=== PATIENT | male | born 1955 | race Caucasian/White ===

== ENCOUNTER 2016-11-11 09:36 | Inpatient (IN) ==
--- NOTE | 2016-11-11 09:58 | Emergency Department Note ---
Disposition Clinical Impression: Abdominal pain, Pancreatitis, HTN (hypertension) Disposition: Admitted As Inpatient Condition: Fair Referrals: Sebastián Dean DO [Primary Care Provider] - Forms: Work/School Release, ED Satisfaction Letter Time of Disposition: 12:17 Abdominal Pain HPI - General Chief Complaint: ED Abdominal Pain Stated Complaint: abdominal pain, feels like gas, last bm yesterday Time Seen by Provider: 11/11/16 09:45 Source: patient Mode of arrival: ambulatory Limitations: no limitations Nursing Notes Reviewed: Yes Vital Signs Reviewed: Yes - History of Present Illness HPI Narrative: She is having a 2 day history of suprapubic pain with radiation up into the chest denies any nausea vomiting denies prior history of surgical repair he denies any blurred vision double vision states that he has not had a bowel movement for the patient states pain started getting worse about 11:00 yesterday after he ate Mrs. continue to progress this time patient states is sharp stabbing type pain goes straight into the back he denies any radiation down his legs or any loss of bowel or bladder control. Denies diarrhea vomiting it feels as if he could vomit she might feel better Pt Subjective Complaint: abdominal pain Onset (ago): day(s) (1) Consistency: constant Location: diffuse Pain Severity: severe Pain Scale: 10 Quality: stabbing Radiation: back Migration to: no migration Improves with: nothing Worsens with: eating Associated symptoms: Reports: nausea, constipation. Denies: vomiting, diarrhea , fever, chills, dysuria, hematemesis, hematochezia, melena, hematuria, anorexia , syncope Treatments prior to arrival: none - Related Data Home Medications Medication Instructions Recorded Confirmed Budesonide/Formoterol 80/4.5 2 puff IH BID 12/23/15 11/11/16 [Symbicort 80/4.5] Omeprazole [PriLOSEC] 40 mg PO QAM 12/23/15 11/11/16 Tiotropium [Spiriva] 18 mcg IH BID 12/23/15 11/11/16 Albuterol Sulfate [Proair Hfa] 2 puff IH Q6H 05/29/16 11/11/16 Rosuvastatin Calcium 5 mg PO DAILY 11/11/16 11/11/16 Previous Rx's Medication Instructions Recorded Lisinopril-HCTZ 10-12.5 [Prinzide 1 each PO DAILY #15 tablet 12/23/15 10-12.5] Allergies Allergy/AdvReac Type Severity Reaction Status Date / Time prostate medication Allergy Hives Uncoded 11/11/16 09:38 All systems ED: reviewed and negative except as stated. Constitutional: Denies: fever, weakness Eyes: Denies: vision change ENT ED: Denies: ear pain, throat pain Cardiovascular: Denies: chest pain, palpitations Respiratory: Denies: dyspnea Gastrointestinal: Reports: abdominal pain, nausea, constipation. Denies: vomiting, diarrhea, hematemesis, melena, hematochezia Genitourinary: Denies: urgency, dysuria, frequency, hematuria Musculoskeletal: Denies: back pain, neck pain Integumentary: Denies: rash, abrasion Neurological: Denies: headache, weakness Psychiatric: Denies: anxiety Endocrine: Denies: fatigue Hematological/Lymphatic: Denies: easy bleeding Allergic/Immunologic: Denies: facial swelling Abdominal Pain PMH - Past Medical History Medical history: Reports: COPD, GERD, hypertension Male Surgical History: Reports: orthopedic, other Psychiatric history: Reports: no psych history - Social History Smoking status: Former smoker Alcohol use: Reports: none Drug use: Reports: none Physical Exam - General Limitations: no limitations General appearance: alert, in no apparent distress, anxious, other (easily aggitated and agressive at times) - Head Head exam: normocephalic, normal inspection - Eye Eye exam: Present: normal appearance, PERRL, EOMI - ENT ENT exam: normal exam, normal oropharynx, mucous membranes moist, normal external ear exam - Neck Neck exam: Present: normal inspection, full ROM, trachea midline - Chest Chest inspection: Present: normal inspection, symmetric chest wall rise - Respiratory Respiratory exam: Present: normal lung sounds bilaterally - Cardiovascular Cardiovascular exam: Present: regular rate, normal rhythm, normal heart sounds - Abdominal Exam Abdominal exam: Present: soft, tenderness, distention, guarding, hypoactive bowel sounds. Absent: mass, pulsatile mass Abdominal tenderness: Present: epigastrium, moderate - Expanded Upper Extremity Exam Shoulder exam: Present: normal inspection, full ROM Arm exam: Present: normal inspection, full ROM Elbow exam: Present: normal inspection, full ROM Forearm/Wrist exam: Present: normal inspection, full ROM Hand exam: Present: normal inspection, full ROM Vascular exam: Normal: capillary refill, radial pulse - Expanded Lower Extremity Exam Hip/Pelvis exam: Present: normal inspection, full ROM Upper leg exam: Present: normal inspection, full ROM Knee exam: Present: normal inspection, full ROM Lower leg exam: Present: normal inspection, full ROM Ankle exam: Present: normal inspection, full ROM Foot/toe exam: Present: normal inspection, full ROM Neurovascular/Tendon exam: Present: normal capillary refill, normal fine/light touch. Absent: motor deficit, sensory deficit, tendon deficit Gait: observed and normal - Back Exam Back exam: Present: normal inspection, full ROM - Neurological Exam Neurological exam: Present: alert, oriented X3, CN II-XII intact - Psychiatric Psychiatric exam: Present: normal affect, normal mood - Skin Skin exam: Present: warm, dry, intact, normal color Course Course Narrative: He should seen and examined patient was given initially name this did not seem to help ease his pain he was then given by moderate which did seem to help ease his pain patient still remained a little bit hypertensive during this period time patient was given Normodyne for this which seemed to help improve the patient was then transferred for further management after discussion with Dr. Segal Vital Signs Temperature 97.7 F 11/11/16 09:40 Pulse Rate 106 11/11/16 09:40 Respiratory Rate 18 11/11/16 09:40 Blood Pressure 182/113 11/11/16 09:40 O2 Sat by Pulse Oximetry 95 11/11/16 09:40 Temperature 97.7 F 11/11/16 09:43 Pulse Rate 98 11/11/16 10:59 Respiratory Rate 18 11/11/16 10:59 Blood Pressure 162/106 11/11/16 10:59 O2 Sat by Pulse Oximetry 99 11/11/16 10:59 Oxygen Delivery Oxygen Delivery Room Air Abdominal Pain - Differential Diagnosis Differential Diagnosis: Likely: abdominal pain non-specific, diverticulitis, diverticulosis, pancreatitis - Medical Records Medical records reviewed: Yes I reviewed the patient's medical records. - Lab Data Lab results reviewed: Yes I reviewed the patient's lab results. Result diagrams: 11/11/16 10:11 11/11/16 10:11 Lab Results 11/11/16 11/11/16 11/11/16 Range/Units 10:11 10:11 10:11 WBC 11.3 H (4.3-11.1) K/mcL RBC 5.04 (4.19-5.50) M/mcL Hgb 14.3 (12.9-16.9) g/dL Hct 42.2 (37.5-50.1) % MCV 83.7 (83.0-100.0) fL MCH 28.4 (28.0-33.3) pg MCHC 33.9 (31.6-35.5) g/dL RDW 13.6 (11.5-14.5) % Plt Count 324 (140-400) K/mcL MPV 9.9 (9.4-12.4) fL Immature Gran % 0.4 (0-4) % Seg Neutrophils % 84.7 % Lymphocytes % 7.5 % Monocytes % 6.7 % Eosinophils % 0.4 % Basophils % 0.3 % Neutrophils # 9.6 H (1.6-8.9) K/mcL Lymphocytes # 0.9 (0.6-4.6) K/mcL Monocytes # 0.8 (0.0-1.3) K/mcL Eosinophils # 0.1 (0.0-0.6) K/mcL Basophils # 0.0 (0.0-0.2) K/mcL PT 12.3 H (9.4-12.1) Seconds INR 1.1 APTT 32.5 (26.0-36.0) Seconds Sodium 130 L (136-145) mEq/L Potassium 4.5 (3.5-4.5) mEq/L Chloride 92 L (98-109) mEq/L Carbon Dioxide 27 (19-29) mEq/L BUN 13 (8-26) mg/dL Creatinine 0.75 (0.72-1.25) mg/dL Est GFR ( Amer) > 60 (> 60) Est GFR (Non-Af Amer) > 60 (> 60) BUN/Creatinine Ratio 17 (6-26) Glucose 123 H (70-99) mg/dL Calculated Osmolality 271 L (280-300) Calcium 9.5 (8.6-10.8) mg/dL Total Bilirubin 0.7 (0.2-1.2) mg/dL AST 20 (5-34) Units/L ALT 20 (0-55) Units/L Alkaline Phosphatase 81 (38-126) Units/L Serum Total Protein 7.1 (6.0-8.3) g/dL Albumin 3.6 (3.5-5.0) g/dL Globulin 3.5 (2.4-3.5) g/dL Albumin/Globulin Ratio 1.0 L (1.1-2.2) - Radiology Data Radiology results reviewed: Yes I reviewed the patient's radiology results. Critical Care Time Critical Care Time: No
[2016-11-11] MEDS ORDERED: *HR* Promethazine 25 MG/ML VIAL IVP ONE (10:00)
[2016-11-11] MEDS ORDERED: 0.9 % Sodium Chloride 1,000 ML IVC ONE (10:00)
[2016-11-11] MEDS ORDERED: *HR* Morphine 2 MG/ML SYRINGE IVP ONE (10:01)
[2016-11-11 10:17] LABS: Basophils % 0.3 %; Eosinophils # 0.1 K/mcL (0.0-0.6); Eosinophils % 0.4 %; Hematocrit 42.2 % (37.5-50.1); Hemoglobin 14.3 g/dL (12.9-16.9); Immature Granulocytes % 0.4 % (0-4); Lymphocytes # 0.9 K/mcL (0.6-4.6); Lymphocytes % 7.5 %; Mean Corpuscular HGB Conc 33.9 g/dL (31.6-35.5); Mean Corpuscular Hemoglobin 28.4 pg (28.0-33.3); Mean Corpuscular Volume 83.7 fL (83.0-100.0); Mean Platelet Volume 9.9 fL (9.4-12.4); Monocytes # 0.8 K/mcL (0.0-1.3); Monocytes % 6.7 %; Neutrophils # 9.6 K/mcL (1.6-8.9); Platelet Count 324 K/mcL (140-400); Red Blood Count 5.04 M/mcL (4.19-5.50); Red Cell Distribution Width 13.6 % (11.5-14.5); Segmented Neutrophils % 84.7 %
[2016-11-11 10:23] LABS: INR 1.1; Prothrombin Time 12.3 Seconds (9.4-12.1)
[2016-11-11 10:26] LABS: Activated Partial Thrombo Time 32.5 Seconds (26.0-36.0)
[2016-11-11 10:35] LABS: Alanine Aminotransferase 20 Units/L (0-55); Albumin 3.6 g/dL (3.5-5.0); Alkaline Phosphatase 81 Units/L (38-126); Aspartate Amino Transferase 20 Units/L (5-34); BUN/Creatinine Ratio 17 (6-26); Bilirubin,Total 0.7 mg/dL (0.2-1.2); Blood Urea Nitrogen 13 mg/dL (8-26); Calcium 9.5 mg/dL (8.6-10.8); Carbon Dioxide 27 mEq/L (19-29); Chloride 92 mEq/L (98-109); Globulin 3.5 g/dL (2.4-3.5); Glucose 123 mg/dL (70-99); Osmolality,Calculated 271 (280-300); Potassium 4.5 mEq/L (3.5-4.5); Sodium 130 mEq/L (136-145); Total Protein 7.1 g/dL (6.0-8.3); eGFR For African Americans > 60 (> 60); eGFR For Non-African Americans > 60 (> 60)
[2016-11-11] MEDS ORDERED: Famotidine 20 MG/2 ML VIAL IVP ONE (11:34)
[2016-11-11] MEDS ORDERED: *HR* HYDROmorphone (PF) 1 MG/ML SYRINGE IVP ONE (11:34)
[2016-11-11 11:47] LABS: Bilirubin,Urine Negative (Negative); Blood,Urine Trace-intact (Negative); Clarity,Urine Clear (Clear); Color,Urine Yellow (Yellow); Glucose,Urine (UA) Normal (Normal); Ketones,Urine 40 mg/dL (Negative); Leukocyte Esterase,Urine Negative (Negative); Nitrite,Urine Negative (Negative); PH,Urine 8.5 pH Units (5.0-8.0); Protein,Urine Trace mg/dL (Neg-Trace); Urobilinogen,Urine Normal (Normal)
[2016-11-11 11:53] LABS: RBC,Urine 0-3 per hpf (0-3); Squamous Epithelial Cell,Urine Few per lpf (None-Few)
[2016-11-11 11:54] LABS: Bacteria,Urine Few per hpf (None-Few); Mucus,Urine Few (Few)
[2016-11-11] MEDS ORDERED: *HR* Labetalol 20 MG/4 ML SYRINGE IVP STA (12:17)
[2016-11-11] MEDS ORDERED: 0.9 % Sodium Chloride 1,000 ML ONE (12:23)
[2016-11-11] MEDS ORDERED: Ondansetron 4 MG/2 ML VIAL IVP PRN ×2 (12:43→16:37)
[2016-11-11] MEDS ORDERED: *HR* HYDROmorphone (PF) 1 MG/ML SYRINGE IVP PRN ×2 (12:43→16:37)
[2016-11-11] MEDS ORDERED: *HR* Promethazine 25 MG/ML VIAL IVP PRN ×2 (12:43→16:37)
[2016-11-11] MEDS ORDERED: Naloxone 0.4 MG/ML INJ IVP PRN ×2 (12:43)
[2016-11-11] MEDS: 0.9 % Sodium Chloride 1,000 ML IVC SCH ×2 (13:03→21:52)
--- NOTE | 2016-11-11 16:24 | Internal Med History&Physical ---
Date of Encounter: 11/11/16 Time of Encounter: 15:55 Assessment and Plan (1) Abdominal pain Current visit: Yes Status: Acute He will be treated for pancreatitis although lipase was normal. He will be given IV fluids with prn analgesics. Diet will be introduced gradually. Follow -up labs will be done in a.m. Qualifiers: Abdominal location: epigastric Qualified Code(s): R10.13 - Epigastric pain (2) HTN (hypertension) Current visit: Yes Status: Chronic Lisinopril/HCTZ will be held and he will be given metoprolol. Further workup will be done as needed. Qualifiers: Hypertension type: essential hypertension Qualified Code(s): I10 - Essential (primary) hypertension (3) COPD (chronic obstructive pulmonary disease) Current visit: Yes Status: Chronic He will be given home regimen with prn albuterol nebs Qualifiers: COPD type: emphysema Emphysema type: unspecified Qualified Code(s): J43.9 - Emphysema, unspecified Internal Medicine - H&P: HPI Chief complaint: Abdominal pain Admitted From: Home Plans for Post Hospital Care: Home History of present illness: Mr. Holley is a 61 year old male who came to emergency stating he had worsening abdominal pain over the past 2 days. He had nausea but no vomiting. He states the pain was in his suprapubic area and radiated up to his upper abdomen and back area. He states the level was 10 /10. He came to emergency room and evaluation included CT scan that showed possible mild pancreatitis. His lipase was normal however. He was admitted to [facility] floor for ongoing care needs. He denies previous episodes of pancreatitis. He denies alcohol use for many years and has had no gallstones. He has been on lisinopril/HCTZ for several months. He has not had abdominal trauma. He does have hyperlipidemia but most recent triglyceride level was 48 on 05/24/2016. Denies other disorders of his liver gallbladder or exocrine pancreas. He had diverticulitis in the past. He has not had melena or hematochezia. Past Med Surg Social Fam HX - Past Medical History Medical history: COPD, GERD, hypertension Psychiatric history: no psych history - Social History Smoking Status: Former smoker Smokeless Tobacco Status: No Alcohol use: none Drug use: none Internal Medicine - H&P: Meds Budesonide/Formoterol 80/4.5 [Symbicort 80/4.5] 2 puff IH BID 12/23/15 [History ] Lisinopril-HCTZ 10-12.5 [Prinzide 10-12.5] 1 each PO DAILY #15 tablet 12/23/15 [ Rx] Omeprazole [PriLOSEC] 40 mg PO QAM 12/23/15 [History] Tiotropium [Spiriva] 18 mcg IH BID 12/23/15 [History] Albuterol Sulfate [Proair Hfa] 2 puff IH Q6H 05/29/16 [History] Rosuvastatin Calcium 5 mg PO DAILY 11/11/16 [History] Allergies prostate medication Allergy (Uncoded 11/11/16 09:38) Hives All Systems PM: A 10-system review of systems was performed and is negative for pertinent findings except as documented above in the HPI. Review of systems: Gen.: He states his weight has been stable the past few months Cardiovascular: He has a history of hypertension but denies NH heart failure angina DVT or pulmonary embolus Respiratory: He is smoked since age 14 up to 2 packs per day. He has oxygen at home for when necessary use but states it belongs to a friend. He claims he had PFTs approximately 2013 which showed COPD/emphysema. GI: As per history of present illness : He has BPH. 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 He has had surgery on his back and wrist in the past. - Constitutional Vitals: Temp Pulse Resp BP Pulse Ox 98.5 F 93 14 160/94 97 11/11/16 13:00 11/11/16 13:00 11/11/16 13:00 11/11/16 13:00 11/11/16 13:00 Exam: Gen.: He is a well-developed and nourished male who appears in mild pain at the present time HEENT: Head is atraumatic and normocephalic. Eyes: EOMI. There is no scleral icterus. Mouth: Mucosa is moist. Neck: Supple and nontender. There is no thyromegaly or adenopathy noted. Heart: Regular without murmurs gallops or ectopics. Lungs: No wheezes or crackles are heard. Back: He has well-healed surgical scar in his midline back area. There is no flank tenderness Abdomen: Soft and nontender. Bowel sounds are markedly diminished and almost absent. There is mild tenderness to moderate palpation in epigastric area. Extremities: There is no cyanosis edema or clubbing noted. Dorsalis pedis and posttibial pulses are 1-2 over 2 bilaterally. Neurologic: Mental status: He is talkative and a good historian. Cranial nerves : Smile is symmetric. Forehead wrinkles bilaterally. Tongue protrudes midline. EOMI. Motor: There is no pronator drift. Cerebellar: Finger to nose is intact bilaterally. Skin: Warm and dry Internal Med - H&P Results - Labs CBC & Chem 7: 11/11/16 10:11 11/11/16 10:11
[2016-11-11] MEDS: Budesonide/Formoterol 80/4.5 MDI IH SCH (21:32)
[2016-11-12 05:28] LABS: Basophils # 0.1 K/mcL (0.0-0.2); Basophils % 0.6 %; Eosinophils # 0.2 K/mcL (0.0-0.6); Eosinophils % 1.8 %; Hematocrit 37.2 % (37.5-50.1); Hemoglobin 12.2 g/dL (12.9-16.9); Immature Granulocytes % 0.4 % (0-4); Lymphocytes # 1.4 K/mcL (0.6-4.6); Lymphocytes % 13.9 %; Mean Corpuscular HGB Conc 32.8 g/dL (31.6-35.5); Mean Corpuscular Volume 85.5 fL (83.0-100.0); Mean Platelet Volume 9.9 fL (9.4-12.4); Monocytes % 9.8 %; Neutrophils # 7.5 K/mcL (1.6-8.9); Platelet Count 279 K/mcL (140-400); Red Blood Count 4.35 M/mcL (4.19-5.50); Red Cell Distribution Width 13.7 % (11.5-14.5); Segmented Neutrophils % 73.5 %
[2016-11-12] MEDS: 0.9 % Sodium Chloride 1,000 ML IVC SCH ×3 (05:49→17:07)
[2016-11-12] MEDS: *HR* Enoxaparin 40 MG/0.4 ML SYRINGE SQ SCH (05:50)
[2016-11-12 05:54] LABS: Alanine Aminotransferase 15 Units/L (0-55); Albumin 2.8 g/dL (3.5-5.0); Alkaline Phosphatase 65 Units/L (38-126); Aspartate Amino Transferase 15 Units/L (5-34); BUN/Creatinine Ratio 10 (6-26); Bilirubin,Total 0.7 mg/dL (0.2-1.2); Blood Urea Nitrogen 7 mg/dL (8-26); Calcium 8.5 mg/dL (8.6-10.8); Carbon Dioxide 26 mEq/L (19-29); Chloride 99 mEq/L (98-109); Globulin 2.9 g/dL (2.4-3.5); Glucose 90 mg/dL (70-99); Lipase 24 Units/L (8-78); Osmolality,Calculated 276 (280-300); Potassium 4.2 mEq/L (3.5-4.5); Sodium 134 mEq/L (136-145); Total Protein 5.7 g/dL (6.0-8.3); eGFR For African Americans > 60 (> 60); eGFR For Non-African Americans > 60 (> 60)
[2016-11-12 05:55] LABS: Chol/HDL Ratio 2.9 (0-4.9)
[2016-11-12] MEDS: Budesonide/Formoterol 80/4.5 MDI IH SCH ×2 (08:10→22:45)
[2016-11-12] MEDS: Tiotropium 18 MCG inhalation IH SCH (08:16)
[2016-11-12] MEDS ORDERED: Pantoprazole 40 MG VIAL IVP SCH (09:00)
--- NOTE | 2016-11-12 09:08 | Internal Med Progress Note ---
Date of Encounter: 11/12/16 Time of Encounter: 09:00 - Assessment and plan (1) Abdominal pain Current Visit: Yes Status: Acute Assessment and plan: November 12. Will advance diet to full liquid. Leukocytosis and left shift have resolved. Qualifiers: Abdominal location: epigastric Qualified Code(s): R10.13 - Epigastric pain (2) HTN (hypertension) Current Visit: Yes Status: Chronic Assessment and plan: November 12. Remain off lisinopril/HCTZ and continue metoprolol. Qualifiers: Hypertension type: essential hypertension Qualified Code(s): I10 - Essential (primary) hypertension (3) COPD (chronic obstructive pulmonary disease) Current Visit: Yes Status: Chronic Assessment and plan: November 12. Continue present regimen Qualifiers: COPD type: emphysema Emphysema type: unspecified Qualified Code(s): J43.9 - Emphysema, unspecified (4) Urinary retention Current Visit: Yes Status: Acute Assessment and plan: November 12. We will give Flomax. Discontinue Younger in a.m. - Subjective Interval history: November 12. He has no new complaints and feels better. He is passing gas. He has no nausea and has had no vomiting. He had over 500 mL urine on bladder scan yesterday. Younger catheter was inserted. He denies urinary hesitancy at home. - Constitutional Vitals: Temp Pulse Resp BP Pulse Ox 99.1 F 92 18 159/93 98 11/12/16 07:03 11/12/16 07:03 11/12/16 08:21 11/12/16 07:03 11/12/16 08:21 Exam: He is resting comfortably in bed. Bowel sounds are present. The abdomen is nontender to palpation. I reviewed his medications and lab results. Internal Medicine: Result - Labs CBC & Chem 7: 11/12/16 05:06 11/12/16 05:06 Labs: Short CBC 11/12/16 Range/Units 05:06 WBC 10.2 (4.3-11.1) K/mcL Hgb 12.2 L D (12.9-16.9) g/dL Hct 37.2 L (37.5-50.1) % Plt Count 279 (140-400) K/mcL Neutrophils # 7.5 (1.6-8.9) K/mcL BMP 11/12/16 05:06 Sodium 134 L Potassium 4.2 Chloride 99 Carbon Dioxide 26 BUN 7 L Creatinine 0.72 Glucose 90 Calcium 8.5 L Liver Function 11/12/16 Range/Units 05:06 Total Bilirubin 0.7 (0.2-1.2) mg/dL AST 15 (5-34) Units/L ALT 15 (0-55) Units/L Alkaline Phosphatase 65 (38-126) Units/L Albumin 2.8 L D (3.5-5.0) g/dL - ABG Interpretation ABG results: PT/INR, D-dimer PT 12.3 Seconds (9.4-12.1) H 11/11/16 10:11 Consult Discharge Plan - Plan Referrals: Sebastián Dean DO [Primary Care Provider] - 1 week
[2016-11-13] MEDS: *HR* Enoxaparin 40 MG/0.4 ML SYRINGE SQ SCH (06:31)
[2016-11-13 06:53] VITALS: BP 144/91
[2016-11-13] MEDS: Budesonide/Formoterol 80/4.5 MDI IH SCH (08:24)
[2016-11-13] MEDS: Tiotropium 18 MCG inhalation IH SCH (08:27)
[2016-11-13] MEDS ORDERED: Metoprolol XL (24 HR) Succ 50 MG TAB.ER.24H PO SCH (10:15)
--- NOTE | 2016-11-13 10:17 | Discharge Summary ---
Date of Encounter: 11/13/16 Time of Encounter: 10:00 - Discharge Diagnosis (1) Abdominal pain Priority: Primary Status: Resolved Qualifiers: Abdominal location: epigastric Qualified Code(s): R10.13 - Epigastric pain (2) HTN (hypertension) Priority: Secondary Status: Chronic Qualifiers: Hypertension type: essential hypertension Qualified Code(s): I10 - Essential (primary) hypertension (3) COPD (chronic obstructive pulmonary disease) Priority: Secondary Status: Chronic Qualifiers: COPD type: emphysema Emphysema type: unspecified Qualified Code(s): J43.9 - Emphysema, unspecified (4) Urinary retention Priority: Secondary Status: Acute - Discharge Medications Prescriptions: Metoprolol XL (24 HR) Succ [Toprol XL] 50 mg PO DAILY #30 tab.er.24h Home Medications: Budesonide/Formoterol 80/4.5 [Symbicort 80/4.5] 2 puff IH BID 12/23/15 [History ] Omeprazole [PriLOSEC] 40 mg PO QAM 12/23/15 [History] Tiotropium [Spiriva] 18 mcg IH BID 12/23/15 [History] Albuterol Sulfate [Proair Hfa] 2 puff IH Q6H 05/29/16 [History] Rosuvastatin Calcium 5 mg PO DAILY 11/11/16 [History] Metoprolol XL (24 HR) Succ [Toprol XL] 50 mg PO DAILY #30 tab.er.24h 11/13/16 [ Rx] Allergies/Adverse Reactions: Allergies tamsulosin [From Flomax] Adverse Reaction (Verified 11/12/16 15:33) Difficulty Breathing prostate medication Allergy (Uncoded 11/11/16 09:38) Hives Date of admission: 11/11/16 16:37 Primary care physician: Sebastián Dean DO - Patient Status Disposition: Home, Self-Care Condition: Fair Overall status at discharge: patient is progressing back to baseline - Discharge Instructions Follow Up With: Sebastián Dean DO [Primary Care Provider] - 11/14/16 - Diet and Activity Activity: resume usual activities as tolerated Diet: advance to your usual diet Hospital course: Mr. Holley is a 61 year old male who came to emergency stating he had worsening abdominal pain over the past 2 days. He had nausea but no vomiting. He states the pain was in his suprapubic area and radiated up to his upper abdomen and back area. He states the level was 10 /10. He came to emergency room and evaluation included CT scan that showed possible mild pancreatitis. His lipase was normal however. He was admitted to [facility] for ongoing care needs. Initial orders were written by the emergency room physician. I saw him on November 11 and performed history and physical. He was given IV fluids and analgesics. Diet was reintroduced and tolerated well. His abdominal pain lessened and almost resolved by the day of discharge. The exact cause of his abdominal pain was not determined with certainty. Follow-up lipase done November 12 was also normal at 24. Lisinopril/HCTZ was held because of possible pancreatitis and hyponatremia and hypochloremia. The fluids were given and chemistries improved. He was given metoprolol and his heart rate and blood pressure remained stable. He will be discharged home on Toprol-XL 50 mg daily. Roomer oximetry will be checked prior to discharge. He will follow with Dr. Dean as scheduled tomorrow. - Time Spent with Patient Total time spent providing and/or coordinating discharge services: - Constitutional Vitals: Temp Pulse Resp BP Pulse Ox 98.1 F 83 18 144/91 97 11/13/16 06:52 11/13/16 06:52 11/13/16 08:27 11/13/16 06:52 11/13/16 08:27
== END 2016-11-13 12:43 | disposition home or self-care (01) | DRG 251 ==
LOC: INPPIK 09:36 → EMEROOPIK 09:36 → INPPIK 12:51
PROVIDERS: ADMIT Internal Medicine; ATTEND Internal Medicine

== ENCOUNTER 2017-02-06 23:55 | Observation (INO) ==
[2017-02-07] MEDS ORDERED: Ipratropium/Albuterol Neb 3 ML IH ONE (00:05)
[2017-02-07] MEDS ORDERED: 0.9 % Sodium Chloride 1,000 ML IVC ONE (00:08)
[2017-02-07] MEDS ORDERED: methylPREDNISolone 125 MG/2 ML VIAL IVP ONE (00:08)
--- NOTE | 2017-02-07 00:10 | Emergency Department Note ---
Disposition Clinical Impression: Acute exacerbation of chronic obstructive airways disease, HTN (hypertension) Disposition: Admitted As Inpatient Condition: Fair Referrals: Sebastián Dean DO [Primary Care Provider] - Forms: ED Satisfaction Letter Time of Disposition: 01:19 (OBSV Philipp) SOB HPI - General Chief Complaint: ED Shortness of Breath/Dyspnea Stated Complaint: difficulty breathing Time Seen by Provider: 02/06/17 23:59 Source: EMS Mode of arrival: ambulatory Limitations: no limitations Nursing Notes Reviewed: Yes Vital Signs Reviewed: Yes - History of Present Illness Pt Subjective Complaint: shortness of breath Onset (ago): day(s) (3-4 worse this pm) Severity: severe Consistency/Duration: constant Improves with: nothing Worsens with: exertion, movement, coughing Known history of: COPD Associated symptoms: Reports: wheezing. Denies: chest pain, pain with inspiration, fever, cough, sputum production, orthopnea, lower extremity pain, polyuria, polydipsia, parasthesias, palpitations, hemoptysis, diaphoresis, nausea/vomiting, syncope, abdominal pain, sense of impending doom Treatment prior to arrival: oxygen, bronchodilator Cough present: No Sputum production: No - Related Data Home Medications Medication Instructions Recorded Confirmed Budesonide/Formoterol 80/4.5 2 puff IH BID 12/23/15 11/11/16 [Symbicort 80/4.5] Omeprazole [PriLOSEC] 40 mg PO QAM 12/23/15 11/11/16 Tiotropium [Spiriva] 18 mcg IH BID 12/23/15 11/11/16 Albuterol Sulfate [Proair Hfa] 2 puff IH Q6H 05/29/16 11/11/16 Rosuvastatin Calcium 5 mg PO DAILY 11/11/16 11/11/16 Previous Rx's Medication Instructions Recorded Metoprolol XL (24 HR) Succ [Toprol 50 mg PO DAILY #30 tab.er.24h 11/13/16 XL] Allergies Allergy/AdvReac Type Severity Reaction Status Date / Time tamsulosin [From Flomax] AdvReac Difficulty Verified 02/07/17 00:11 Breathing prostate medication Allergy Hives Uncoded 02/07/17 00:11 All systems ED: reviewed and negative except as stated. Constitutional: Denies: fever, chills, weakness Eyes: Denies: eye pain, eye discharge ENT ED: Denies: ear pain, throat pain Cardiovascular: Denies: chest pain, palpitations Respiratory: Reports: cough, dyspnea, wheezes Gastrointestinal: Denies: abdominal pain, nausea, vomiting Genitourinary: Denies: urgency, dysuria Musculoskeletal: Denies: back pain Integumentary: Denies: rash, abrasion Neurological: Denies: headache Psychiatric: Denies: anxiety Endocrine: Denies: fatigue Hematological/Lymphatic: Denies: easy bleeding Allergic/Immunologic: Denies: facial swelling Past Medical History - Past Medical History Attestation: Yes The following information was validated with the patient. Source: patient, old records reviewed, nursing notes reviewed Medical history: Reports: COPD, GERD, hypertension Psychiatric history: Reports: no psych history - Social History Smoking Status: Former smoker Smokeless Tobacco Status: No Alcohol use: Reports: none Drug use: Reports: none Physical Exam - General Limitations: no limitations General appearance: alert, anxious, in distress - Head Head exam: atraumatic, normocephalic, normal inspection - Eye Eye exam: Present: normal appearance, PERRL, EOMI - ENT ENT exam: normal exam, normal oropharynx, mucous membranes moist, normal external ear exam - Neck Neck exam: Present: normal inspection, full ROM, trachea midline - Chest Chest inspection: Present: normal inspection, symmetric chest wall rise - Respiratory Respiratory exam: Present: wheezes, accessory muscle use, prolonged expiratory phase - Cardiovascular Cardiovascular exam: Present: regular rate, normal rhythm, normal heart sounds - Abdominal Exam Abdominal exam: Present: soft, Non-Tender, normal bowel sounds. Absent: mass, pulsatile mass - Extremities Exam Extremities exam: Present: normal inspection, full ROM, normal capillary refill , pedal edema. Absent: tenderness, joint swelling, calf tenderness - Expanded Lower Extremity Exam Neurovascular/Tendon exam: Present: normal capillary refill, normal fine/light touch Gait: observed and normal - Back Exam Back exam: Present: normal inspection, full ROM. Absent: muscle spasm - Neurological Exam Neurological exam: Present: alert, oriented X3, CN II-XII intact, normal gait - Psychiatric Psychiatric exam: Present: normal affect, normal mood - Skin Skin exam: Present: warm, dry, intact, normal color Course Course Narrative: Patient immediately seen and examined given a DuoNeb treatment 2 chest x-ray and blood work done EKG was done which showed sinus tach but no ST changes noted patient was hypertensive we discussed the possibilities of this being related to his tight pulmonary presentation we did give him an aerosol will repeat blood pressure upon completion if still elevated we will treat with clonidine - Reevaluation(s) Reevaluation #1: Patient's blood pressure did improve significantly with use of Ativan, and then he still seemed to have some agitation with family but now he is agreeable staying overnight getting his respiratory status improved Vital Signs Temperature 97.5 F L 02/06/17 23:57 Pulse Rate 109 02/06/17 23:57 Respiratory Rate 21 02/06/17 23:57 Blood Pressure 200/126 02/06/17 23:57 O2 Sat by Pulse Oximetry 98 02/06/17 23:57 Temperature 97.5 F L 02/06/17 23:57 Pulse Rate 107 02/07/17 01:05 Respiratory Rate 22 02/07/17 01:05 Blood Pressure 205/115 02/07/17 01:05 O2 Sat by Pulse Oximetry 98 02/07/17 01:05 Oxygen Delivery Oxygen Delivery Nasal Cannula Shortness of Breath/Dyspnea - Differential Diagnosis Likely: acute exacerbation of chronic obstructive airways disease, pneumonia, asthma with exacerbation - Medical Records Medical records reviewed: Yes I reviewed the patient's medical records. - Lab Data Lab results reviewed: Yes I reviewed the patient's lab results. Result diagrams: 02/07/17 00:15 02/07/17 00:15 Lab Results 02/07/17 02/07/17 02/07/17 Range/Units 00:15 00:15 00:15 WBC 9.8 (4.3-11.1) K/mcL RBC 5.07 (4.19-5.50) M/mcL Hgb 14.6 (12.9-16.9) g/dL Hct 44.0 (37.5-50.1) % MCV 86.8 (83.0-100.0) fL MCH 28.8 (28.0-33.3) pg MCHC 33.2 (31.6-35.5) g/dL RDW 14.0 (11.5-14.5) % Plt Count 337 (140-400) K/mcL MPV 9.9 (9.4-12.4) fL Immature Gran % 0.4 (0-4) % Seg Neutrophils % 75.8 % Lymphocytes % 13.3 % Monocytes % 8.3 % Eosinophils % 1.6 % Basophils % 0.6 % Neutrophils # 7.4 (1.6-8.9) K/mcL Lymphocytes # 1.3 (0.6-4.6) K/mcL Monocytes # 0.8 (0.0-1.3) K/mcL Eosinophils # 0.2 (0.0-0.6) K/mcL Basophils # 0.1 (0.0-0.2) K/mcL PT 11.0 (9.4-12.1) Seconds INR 1.0 APTT 32.6 (26.0-36.0) Seconds Sodium 133 L (136-145) mEq/L Potassium 4.7 H (3.5-4.5) mEq/L Chloride 94 L (98-109) mEq/L Carbon Dioxide 28 (19-29) mEq/L BUN 13 (8-26) mg/dL Creatinine 0.73 (0.72-1.25) mg/dL Est GFR ( Amer) > 60 (> 60) Est GFR (Non-Af Amer) > 60 (> 60) BUN/Creatinine Ratio 18 (6-26) Glucose 105 H (70-99) mg/dL Calculated Osmolality 276 L (280-300) Calcium 9.3 (8.6-10.8) mg/dL Troponin I (0-0.03) ng/mL 02/07/17 Range/Units 00:15 WBC (4.3-11.1) K/mcL RBC (4.19-5.50) M/mcL Hgb (12.9-16.9) g/dL Hct (37.5-50.1) % MCV (83.0-100.0) fL MCH (28.0-33.3) pg MCHC (31.6-35.5) g/dL RDW (11.5-14.5) % Plt Count (140-400) K/mcL MPV (9.4-12.4) fL Immature Gran % (0-4) % Seg Neutrophils % % Lymphocytes % % Monocytes % % Eosinophils % % Basophils % % Neutrophils # (1.6-8.9) K/mcL Lymphocytes # (0.6-4.6) K/mcL Monocytes # (0.0-1.3) K/mcL Eosinophils # (0.0-0.6) K/mcL Basophils # (0.0-0.2) K/mcL PT (9.4-12.1) Seconds INR APTT (26.0-36.0) Seconds Sodium (136-145) mEq/L Potassium (3.5-4.5) mEq/L Chloride (98-109) mEq/L Carbon Dioxide (19-29) mEq/L BUN (8-26) mg/dL Creatinine (0.72-1.25) mg/dL Est GFR ( Amer) (> 60) Est GFR (Non-Af Amer) (> 60) BUN/Creatinine Ratio (6-26) Glucose (70-99) mg/dL Calculated Osmolality (280-300) Calcium (8.6-10.8) mg/dL Troponin I 0.01 (0-0.03) ng/mL - Radiology Data Radiology results reviewed: Yes I reviewed the patient's radiology results. - EKG Data EKG attestation: Yes I reviewed and interpreted this EKG. EKG results narrative: Sinus rhythm 95 ID 159 QRS 82 QT 336 excess -28 Critical Care Time Critical Care Time: Yes Total Critical Care Time: 45 Attestation: Critical care performed:45 min due to the hypertension associated with the patient at this time but also his respiratory distress upon presentation to the emergency room patient was tachycardic but this is mostly secondary to hypertension discussed with patient observation admission discharge at this time considering strongly of being discharged she does not we will stay in the hospital Time is exclusive of separately billable procedures. Time includes: direct patient care, patient reassessment, coordination of patient care, interpretation of data (laboratory data, radiology data, and respiratory data), review of patient's medical records, medical consultation and documentation of patient care. Procedures included in critical care time: Procedures excluded from critical care time:
[2017-02-07 00:26] LABS: Basophils # 0.1 K/mcL (0.0-0.2); Basophils % 0.6 %; Eosinophils # 0.2 K/mcL (0.0-0.6); Eosinophils % 1.6 %; Hemoglobin 14.6 g/dL (12.9-16.9); Immature Granulocytes % 0.4 % (0-4); Lymphocytes # 1.3 K/mcL (0.6-4.6); Lymphocytes % 13.3 %; Mean Corpuscular HGB Conc 33.2 g/dL (31.6-35.5); Mean Corpuscular Hemoglobin 28.8 pg (28.0-33.3); Mean Corpuscular Volume 86.8 fL (83.0-100.0); Mean Platelet Volume 9.9 fL (9.4-12.4); Monocytes # 0.8 K/mcL (0.0-1.3); Monocytes % 8.3 %; Neutrophils # 7.4 K/mcL (1.6-8.9); Platelet Count 337 K/mcL (140-400); Red Blood Count 5.07 M/mcL (4.19-5.50); Segmented Neutrophils % 75.8 %
[2017-02-07 00:33] LABS: Activated Partial Thrombo Time 32.6 Seconds (26.0-36.0)
[2017-02-07] MEDS ORDERED: cloNIDine HCl 0.1 MG TABLET PO STA (00:36)
[2017-02-07 00:40] LABS: BUN/Creatinine Ratio 18 (6-26); Blood Urea Nitrogen 13 mg/dL (8-26); Calcium 9.3 mg/dL (8.6-10.8); Carbon Dioxide 28 mEq/L (19-29); Chloride 94 mEq/L (98-109); Glucose 105 mg/dL (70-99); Osmolality,Calculated 276 (280-300); Potassium 4.7 mEq/L (3.5-4.5); Sodium 133 mEq/L (136-145); eGFR For African Americans > 60 (> 60); eGFR For Non-African Americans > 60 (> 60)
[2017-02-07] MEDS ORDERED: *HR* LORazepam 2 MG/ML VIAL IVP ONE (00:54)
[2017-02-07] MEDS ORDERED: 0.9 % Sodium Chloride 1,000 ML IVC SCH (02:59)
[2017-02-07] MEDS ORDERED: Naloxone 0.4 MG/ML INJ IVP PRN (02:59)
[2017-02-07] MEDS ORDERED: Ondansetron ODT 4 MG TAB.RAPDIS SL PRN (02:59)
[2017-02-07] MEDS ORDERED: Ipratropium/Albuterol Neb 3 ML IH SCH (05:00)
[2017-02-07] MEDS ORDERED: methylPREDNISolone 125 MG/2 ML VIAL IVP SCH (06:00)
[2017-02-07 06:41] LABS: INR 1.1; Prothrombin Time 11.6 Seconds (9.4-12.1)
[2017-02-07 06:43] LABS: Activated Partial Thrombo Time 31.8 Seconds (26.0-36.0)
[2017-02-07] MEDS ORDERED: Levofloxacin 500 MG/100 ML 500 MG/100 ML BAG IVPB SCH (09:00)
[2017-02-07] MEDS ORDERED: Metoprolol XL (24 HR) Succ 50 MG TAB.ER.24H PO SCH (09:00)
[2017-02-07] MEDS ORDERED: Tiotropium 18 MCG inhalation IH SCH ×2 (10:15→10:18)
[2017-02-07] MEDS ORDERED: Budesonide/Formoterol 80/4.5 MDI IH SCH (10:15)
[2017-02-07] MEDS: Budesonide/Formoterol 160/4.5 MDI IH SCH ×2 (10:32→22:19)
[2017-02-07] MEDS: Albuterol 2.5 MG/3 ML NEBULIZER IH PRN ×2 (10:33→17:58)
--- NOTE | 2017-02-07 11:50 | Internal Med History&Physical ---
Date of Encounter: 02/07/17 Time of Encounter: 11:25 Assessment and Plan (1) Dyspnea Current visit: Yes Status: Acute Suspect primarily due to exacerbation of COPD. Will check bn peptide to evaluate for heart failure component. Qualifiers: Dyspnea type: shortness of breath Qualified Code(s): R06.02 - Shortness of breath (2) HTN (hypertension) Current visit: No Status: Chronic Blood pressures have been suboptimally controlled since admission. Will increase Toprol-XL dose and add Bumex Qualifiers: Hypertension type: essential hypertension Qualified Code(s): I10 - Essential (primary) hypertension Internal Medicine - H&P: HPI Chief complaint: Dyspnea Admitted From: Home Plans for Post Hospital Care: Home History of present illness: Mr. Holley is a 61 year old male who came to the emergency room after he had worsening dyspnea over the preceding few days. He reported he had sensation of hot flashes. He reports no significant cough or chest pain. He was evaluated in emergency room and felt to have exacerbation of COPD and was admitted to [facility] floor for ongoing care needs. He states his breathing has improved and he feels back to his baseline. His respiratory history is significant for having smoked since age 14 up to 2 packs per day. He uses oxygen home but states it belongs to a friend. He claims he had PFTs approximately 2013 which showed COPD/emphysema. He has not missed doses of his pulmonary medications. He has known pulmonary nodules which have been stable on follow-up CT scans. Past Med Surg Social Fam HX - Past Medical History Medical history: COPD, GERD, hypertension Psychiatric history: no psych history, anxiety - Social History Smoking Status: Former smoker Smokeless Tobacco Status: No Alcohol use: none Drug use: none Internal Medicine - H&P: Meds Budesonide/Formoterol 80/4.5 [Symbicort 80/4.5] 2 puff IH BID 12/23/15 [History ] Omeprazole [PriLOSEC] 40 mg PO QAM 12/23/15 [History] Tiotropium [Spiriva] 18 mcg IH BID 12/23/15 [History] Albuterol Sulfate [Proair Hfa] 2 puff IH Q6H 05/29/16 [History] Rosuvastatin Calcium 5 mg PO DAILY 11/11/16 [History] Metoprolol XL (24 HR) Succ [Toprol XL] 50 mg PO DAILY #30 tab.er.24h 11/13/16 [ Rx] Allergies tamsulosin [From Flomax] Adverse Reaction (Verified 02/07/17 03:15) Difficulty Breathing prostate medication Allergy (Uncoded 02/07/17 00:11) Hives All Systems PM: A 10-system review of systems was performed and is negative for pertinent findings except as documented above in the HPI. Review of systems: Review of systems from his November 2016 hospitalization were reviewed and revised as below. Gen.: His weight has been stable since November 2016 hospitalization at approximately 65 kg. Cardiovascular: He has a history of hypertension but denies AL heart failure angina DVT or pulmonary embolus Respiratory: Per history of present illness GI: He was hospitalized with pancreatitis November 2016. Etiology was not certain but lisinopril/HCTZ was discontinued and he has had no recurrence. He denies other disorders of his liver gallbladder or exocrine pancreas. He is had diverticulitis in the past. : He has BPH. 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 He has had surgery on his back and wrist in the past. - Constitutional Vitals: Temp Pulse Resp BP Pulse Ox 98.4 F 101 18 156/91 98 02/07/17 10:25 02/07/17 10:25 02/07/17 10:32 02/07/17 10:25 02/07/17 10:32 Exam: Gen.: He is a well-developed well-nourished male who appears in minimal distress at present time HEENT: Head is atraumatic and normocephalic. Eyes: EOMI. There is no scleral icterus. Mouth: Mucosa is moist. Neck: Supple and nontender. There is no thyromegaly or adenopathy noted. Heart: Regular without murmurs gallops or ectopics Lungs: He has diminished breath sounds diffusely. No wheezes or crackles are heard. Abdomen: Soft and nontender. No masses or guarding are noted. Extremities: There is no cyanosis or clubbing noted. He has trace edema the dorsum of the feet and lower legs bilaterally. Neurologic: Mental status: He is talkative and a good historian. Cranial nerves : Smile is symmetric. Forehead wrinkles bilaterally. Tongue protrudes midline. EOMI. Motor: There is no pronator drift. Cerebellar: Finger to nose is intact bilaterally. Skin: Warm and dry Internal Med - H&P Results - Labs CBC & Chem 7: 02/07/17 00:15 02/07/17 00:15
[2017-02-07] MEDS ORDERED: Bumetanide 1 MG TABLET PO SCH (12:15)
[2017-02-07] MEDS: *HR* LORazepam 2 MG/ML VIAL IVP SCH ×3 (12:45→21:49)
--- NOTE | 2017-02-07 18:20 | Electrocardiograph Report ---
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
[2017-02-08] MEDS: *HR* LORazepam 2 MG/ML VIAL IVP SCH (02:54)
[2017-02-08 06:40] LABS: Basophils % 0.1 %; Eosinophils % 0.2 %; Hematocrit 38.6 % (37.5-50.1); Hemoglobin 12.9 g/dL (12.9-16.9); Immature Granulocytes % 0.4 % (0-4); Lymphocytes # 1.1 K/mcL (0.6-4.6); Lymphocytes % 9.6 %; Mean Corpuscular HGB Conc 33.4 g/dL (31.6-35.5); Mean Corpuscular Hemoglobin 28.7 pg (28.0-33.3); Monocytes # 0.9 K/mcL (0.0-1.3); Monocytes % 8.4 %; Neutrophils # 9.1 K/mcL (1.6-8.9); Platelet Count 297 K/mcL (140-400); Red Blood Count 4.49 M/mcL (4.19-5.50); Red Cell Distribution Width 13.8 % (11.5-14.5); Segmented Neutrophils % 81.3 %
[2017-02-08 06:42] VITALS: BP 158/94
[2017-02-08 06:47] LABS: Carbon Dioxide 28 mEq/L (19-29); Chloride 98 mEq/L (98-109); Potassium 4.3 mEq/L (3.5-4.5); eGFR For African Americans > 60 (> 60); eGFR For Non-African Americans > 60 (> 60)
[2017-02-08 07:03] LABS: BUN/Creatinine Ratio 21 (6-26); Blood Urea Nitrogen 14 mg/dL (8-26); Calcium 8.7 mg/dL (8.6-10.8); Glucose 117 mg/dL (70-99); Osmolality,Calculated 282 (280-300); Sodium 135 mEq/L (136-145)
--- NOTE | 2017-02-08 08:36 | Discharge Summary ---
Date of Encounter: 02/08/17 Time of Encounter: 08:25 - Discharge Diagnosis (1) Acute exacerbation of chronic obstructive airways disease Priority: Primary Status: Acute (2) HTN (hypertension) Priority: Secondary Status: Chronic Qualifiers: Hypertension type: essential hypertension Qualified Code(s): I10 - Essential (primary) hypertension - Discharge Medications Prescriptions: Bumetanide [Bumex] 0.5 mg PO DAILY #15 tablet Lactobacillus [Culturelle] 1 each PO BID #6 cap.sprink levoFLOXacin [Levaquin] 500 mg PO DAILY #3 tablet LORazepam [Ativan] 0.5 mg PO Q6H PRN #10 tablet PRN Reason: Anxiety Metoprolol Succinate 100 mg PO DAILY #30 tab.er.24h Home Medications: Budesonide/Formoterol 80/4.5 [Symbicort 80/4.5] 2 puff IH BID 12/23/15 [History ] Omeprazole [PriLOSEC] 40 mg PO QAM 12/23/15 [History] Tiotropium [Spiriva] 18 mcg IH BID 12/23/15 [History] Albuterol Sulfate [Proair Hfa] 2 puff IH Q6H 05/29/16 [History] Rosuvastatin Calcium 5 mg PO DAILY 11/11/16 [History] Bumetanide [Bumex] 0.5 mg PO DAILY #15 tablet 02/08/17 [Rx] LORazepam [Ativan] 0.5 mg PO Q6H PRN #10 tablet 02/08/17 [Rx] Lactobacillus [Culturelle] 1 each PO BID #6 cap.sprink 02/08/17 [Rx] Metoprolol Succinate 100 mg PO DAILY #30 tab.er.24h 02/08/17 [Rx] levoFLOXacin [Levaquin] 500 mg PO DAILY #3 tablet 02/08/17 [Rx] Allergies/Adverse Reactions: Allergies tamsulosin [From Flomax] Adverse Reaction (Verified 02/07/17 03:15) Difficulty Breathing prostate medication Allergy (Uncoded 02/07/17 00:11) Hives Date of admission: 02/07/17 01:43 Primary care physician: Sebastián Dean DO Consults: 02/07/17 03:39 Consult to Scale Tank Operator [CONS] Routine Reason for SW Consult: dc planning uses home O2 lives alone but sister lives close - Patient Status Disposition: Home, Self-Care Condition: Fair Functional capacity at discharge: independent ambulation Overall status at discharge: patient is progressing back to baseline - Discharge Instructions Follow Up With: Sebastián Dean DO [Primary Care Provider] - 1 week - Diet and Activity Activity: resume usual activities as tolerated Diet: advance to your usual diet Hospital course: Mr. Holley is a 61 year old male who came to the emergency room after he had worsening dyspnea over the preceding few days. He reported he had sensation of hot flashes. He reports no significant cough or chest pain. He was evaluated in emergency room and felt to have exacerbation of COPD and was admitted to [facility] for ongoing care needs. Initial orders were written by the emergency room physician. I saw him on February 07 and performed a history and physical. He was started on Levaquin which was tolerated well. His dyspnea remained improved when I saw him February 08 he felt stable for discharge home. He will continue with Levaquin for 3 additional days of discharge. Room air oximetry rechecked on the 6 minute walk prior to discharge. Blood pressure remained above desirable range. His Toprol XL dose was increased to 100 mg daily and low-dose Bumex was added. He will be discharged home and follow with his PCP Dr. Dean within 1 week. - Time Spent with Patient Total time spent providing and/or coordinating discharge services: - Constitutional Vitals: Temp Pulse Resp BP Pulse Ox 97.9 F 83 18 158/94 98 02/08/17 06:39 02/08/17 06:39 02/08/17 06:39 02/08/17 06:39 02/08/17 06:39
[2017-02-08] MEDS ORDERED: Metoprolol XL (24 HR) Succ 50 MG TAB.ER.24H PO SCH (09:00)
== END 2017-02-08 09:56 | disposition home or self-care (01) ==
LOC: INPPIK 23:55 → EMEROOPIK 23:55 → INPPIK 02-07 02:14
PROVIDERS: ADMIT Internal Medicine; ATTEND Internal Medicine